=== PATIENT | female | born 1990 | race Caucasian/White ===

== ENCOUNTER → 2016-10-22 | Outpatient (CLI) | payer OTHER ==
[~2016-10-22] MED LIST: ACET-749 PO; CITA10TA8 PO; CYAN100T PO; HYDR-3419 PO; MULT-506 PO; NITR1CAP33 PO; OPTIRAY 320 IV PRN; [UNRECOGNIZED DRUG - OTHER] PO
--- NOTE | 2016-10-22 14:59 | DIAGNOSTIC IMAGING REPORT ---
ABDOMEN AND PELVIS CT WITH IV CONTRAST CT DOSE: 1724.56 mGycm HISTORY: Hematuria N28.1 Acquired renal cystN28.89 Renal mass, [id number] Gross hem TECHNIQUE: Multiaxial CT images of the abdomen and pelvis were performed following the use of intravenous contrast. COMPARISON STUDY: ERUM Cramer dated 10/19/2016 FINDINGS: Lung bases are considered clear. The kidneys demonstrate several nonobstructing renal calcifications bilaterally. There is a partially obstructing calculus within the juncture of the report ureteral pelvic region. This measures 5 mm. Additional calcifications bilaterally measuring up to the largest at 8 mm is noted at the lower pole right kidney. The enhanced component of the study demonstrates uniform enhancement of the left kidney. Right kidney also demonstrates uniform enhancement.] Upper pole is a 2.5 cm slightly hyperdense cyst. Hounsfield unit measurements are consistent with a from 8-18. Low density multifocal areas are seen to opacify at a later time frame consistent with a distended pelvicalyceal system and mild secondary hydronephrosis. The enhanced study 3 days following the initial unenhanced component of the study shows an 8 mm calcification within the renal pelvis with 5 mm calcification lower pole. All additional calcifications are stable and show no evidence for obstruction. Ureters normal in course and caliber. Bladder opacifies appropriately. There are no filling defects. Intrauterine device is present within the central and superior fundal region. The T-shaped component is within the endometrial canal with the lower segment at the anterior margin of the uterus. This is considered an abnormal orientation. There is no significant adenopathy within the abdominal pelvic or inguinal regions. IMPRESSION: 1. 8 mm partially obstructing calculus right ureteropelvic junction.. 2. Multiple additional nonobstructing renal calcifications bilaterally.. 3. Slightly hyperdense simple cyst superior pole right kidney. This measures 2.5 cm. 4. Mild/moderate right renal hydronephrosis. 5. Remainder the upper abdomen is unremarkable. 6. Intrauterine device at the level of the uterine fundus. T shaped component appears to be oriented appropriately with the lower aspect of the uterine device potentially within the anterior myometrium 7. Study is otherwise negative. Electronically signed by: Miki Isbell M.D. 10/22/2016 2:57 PM Dictated Date/Time: 10/22/2016 2:49 PM
--- NOTE | 2016-10-22 15:04 | DIAGNOSTIC IMAGING REPORT ---
CHEST 2 VIEWS ROUTINE CLINICAL HISTORY: N20.0 [id number] nephrocalcinosis. COMPARISON STUDY: No previous studies for comparison. FINDINGS: The bones soft tissues and hemidiaphragms are normal. The cardiomediastinal silhouette is normal. The lungs are clear. The pulmonary vasculature is normal. IMPRESSION: Negative chest. Electronically signed by: Miki Isbell M.D. 10/22/2016 3:02 PM Dictated Date/Time: 10/22/2016 3:02 PM
--- NOTE | 2016-10-22 15:10 | DIAGNOSTIC IMAGING REPORT ---
KUB CLINICAL HISTORY: Renal mass. Hematuria. Kidney stones. COMPARISON STUDY: CT scan dated 10/22/2016 FINDINGS: There is an indwelling IUD present. There is no pathologic bowel dilatation. There is mild right-sided hydronephrosis. There is mild clubbing of the calyces in the right. The patient's known right UPJ calculus is obscured by the contrast. IMPRESSION: Mild right-sided hydronephrosis. Electronically signed by: Dave Rolle M.D. 10/22/2016 3:09 PM Dictated Date/Time: 10/22/2016 3:06 PM
== END | disposition home or self-care (01) ==
LOC: C.CTS 11:52
PROVIDERS: ATTEND Urology
DX: N28.1 Cyst of kidney, acquired (principal); N20.0 Calculus of kidney; R31.0 Gross hematuria; N28.89 Other specified disorders of kidney and ureter; N13.30 Unspecified hydronephrosis

== ENCOUNTER → 2016-11-01 | Day surgery (SDC) | payer OTHER ==
[2016-10-22 15:49] VITALS: Ht 170.2 cm; Wt 95.5 kg
[~2016-11-01] VITALS: Ht 170.2 cm; Wt 95.5 kg
[~2016-11-01] MED LIST changes: +ATROPINE SULFATE 0.1 MG/ML 5ML SYR IV PRN; +CIPROFLOXACIN 400MG / D5W IV SCH; +DEXAMETHASONE SOD INJ 4 MG/ML VIAL ONE; +DOCU-94 PO; +DTR5 PO; +ERGO500037 PO; +EpHEDrine SULFATE INJ 50 MG/ML AMP IV PRN; +FENTANYL CITRATE INJ 50 MCG/1 ML 2 ML VIAL IV PRN; +FENTANYL CITRATE INJ 50 MCG/1 ML 2 ML VIAL ONE; +FLUMAZENIL 0.1 MG/1 ML 10 ML VIAL IV PRN; +HYDROmorphone INJ 2 MG/ML SYR/VIAL IV PRN; +LABETALOL HCL IV 5 MG/ML 20ML IV PRN; +LACTATED RINGER'S 1000ML 1,000 ML IV SCH; +LIDOCAINE HCL 2% 2 ML VIAL (20MG/ML) ONE; +MELATAB2 PO; +MEPERIDINE HCL 25 MG/ML CARP IV PRN; +MIDAZOLAM HCL 1 MG/ML 2ML VIAL ONE; +NALOXONE HCL 0.4 MG/1 ML VIAL/CARP IV PRN; +ONDANSETRON INJ 2 MG/ML 2 ML VIAL IV PRN; +ONDANSETRON INJ 2 MG/ML 2 ML VIAL ONE; -OPTIRAY 320 IV PRN; +OXYC1TAB3 PO; +PHEN-1043 PO; +PHENYLEPHRINE 100MCG/ML 5ML SYR IV PRN; +PROMETHAZINE HCL INJ 12.5 MG in SODIUM CHLORIDE 0.9% 50ML 50 ML IV ONE; +PROMETHAZINE HCL INJ 25 MG/ML 1 ML VIAL ONE; +PROPOFOL IV EMULSION 10 MG/ML 20 ML VIAL IV ONE; +SULF800T23 PO; +TAMS0.4C38 PO
--- NOTE | 2016-11-01 08:35 | History & Physical Bridge - SC ---
H&P Re-Evaluation Bridge Note: I have examined the patient, reviewed the History & Physical and in the interval since the performance of the History & Physical I have noted the following changes of clinical significance: No changes noted
--- NOTE | 2016-11-01 09:30 | Discharge Instructions-SurgCtr ---
Discharge Instructions Date of Service Nov 01, 2016. Visit Reason for Visit: Stones Discharge Discharge Diagnosis / Problem: r renal stone Discharge Goals Goal(s): Increase independence Activity Recommendations Activity Limitations: resume your previous activity Anesthesia . Post Anesthesia Instructions: If you have had General Anesthesia or IV Sedation: * Do not drive today. * Resume driving when surgeon permits. * Do not make important decisions or sign legal documents today. * Call surgeon for: 1. Temperature elevations greater than 101 degrees F. 2. Uncontrollable pain. 3. Excessive bleeding. 4. Persistent nausea and vomiting. 5. Medication intolerance (nausea, vomiting or rash). * For nausea and vomiting use only clear liquids such as: tea, soda, bouillon until nausea subsides, then gradually increase diet as tolerated. * If you have any concerns or questions, call your surgeon's office. If physician is unavailable and it is an emergency, call 911 or go to the nearest emergency room. . Diet Recommendations Home Diet: resume previous diet Procedures Procedures Performed: Right Extracorporeal Shock Wave Lithotripsy - Renal Pending Studies Studies pending at discharge: no Medical Emergencies . Who to Call and When: Medical Emergencies: If at any time you feel your situation is an emergency, please call 911 immediately. . Non-Emergent Contact Non-Emergency issues call your: Urologist . . "Provider Documentation" section prepared by Timoteo Toro.
--- NOTE | 2016-11-01 10:16 | Anesthesia Progress Nt - [facility] ---
Anesthesia Post Op Note Date & Time Nov 01, 2016 at 10:16 Vital Signs Pain Intensity: 3 Vital Signs Past 12 Hours Date Time Temp Pulse Resp B/P Pulse Ox O2 Delivery O2 Flow Rate FiO2 11/01/16 10:08 36.6 11/01/16 10:07 60 14 97 11/01/16 10:07 62 14 11/01/16 10:05 121/72 11/01/16 10:02 57 12 11/01/16 10:02 56 12 97 11/01/16 10:00 107/71 11/01/16 09:57 57 12 11/01/16 09:57 60 12 95 11/01/16 09:55 106/63 11/01/16 09:52 55 13 11/01/16 09:52 61 13 98 11/01/16 09:50 114/65 11/01/16 09:47 68 18 11/01/16 09:47 68 18 99 11/01/16 09:45 104/71 11/01/16 09:42 62 12 11/01/16 09:42 62 12 99 11/01/16 09:40 105/72 11/01/16 09:37 57 17 100 11/01/16 09:37 57 17 11/01/16 09:35 100/62 11/01/16 09:32 65 21 11/01/16 09:32 65 21 100 11/01/16 09:30 104/77 11/01/16 09:26 36.2 69 16 104/72 97 Diffusion Mask 5 11/01/16 07:12 36.8 69 16 119/82 98 Room Air Notes Mental Status: alert / awake / arousable, participated in evaluation Pt Amnestic to Procedure: Yes Nausea / Vomiting: adequately controlled, improving with treatment Pain: adequately controlled Airway Patency, RR, SpO2: stable & adequate BP & HR: stable & adequate Hydration State: stable & adequate Anesthetic Complications: no major complications apparent
[2016-11-01 10:18] VITALS: TEMP 36.2
[2016-11-01 10:47] VITALS: BP 122/85; PULSE 52; O2SAT 97
--- NOTE | 2016-11-01 12:07 | OPERATIVE REPORT ---
DATE OF OPERATION: 11/01/2016 PROCEDURE PERFORMED: Right renal ESWL. INDICATIONS: The patient is a 26-year-old female who has had multiple stones including one currently that is causing her intermittent pain at the right UPJ. She presents for definitive treatment. DESCRIPTION OF THE PROCEDURE: She was taken to the operating room. She was given antibiotics. She was placed in supine position with Venodyne stockings. General anesthesia was administered. The stone was visualized in 2 views and she received 2500 shocks, the majority at level 5. At the end of the procedure, she was transferred to the recovery room in stable condition. I attest to the content of the Intraoperative Record and any orders documented therein. Any exceptio ns are noted below.
== END | disposition home or self-care (01) ==
LOC: X.SURG 06:52
PROVIDERS: ATTEND Urology
DX: N20.0 Calculus of kidney (principal); N28.1 Cyst of kidney, acquired; E11.9 Type 2 diabetes mellitus without complications; Z83.3 Family history of diabetes mellitus; Z82.49 Family history of ischemic heart disease and other diseases of the circulatory system

== ENCOUNTER → 2016-11-01 | Outpatient (CLI) | payer OTHER ==
[~2016-11-01] MED LIST changes: -ATROPINE SULFATE 0.1 MG/ML 5ML SYR IV PRN; -CIPROFLOXACIN 400MG / D5W IV SCH; -DEXAMETHASONE SOD INJ 4 MG/ML VIAL ONE; -EpHEDrine SULFATE INJ 50 MG/ML AMP IV PRN; -FENTANYL CITRATE INJ 50 MCG/1 ML 2 ML VIAL IV PRN; -FENTANYL CITRATE INJ 50 MCG/1 ML 2 ML VIAL ONE; -FLUMAZENIL 0.1 MG/1 ML 10 ML VIAL IV PRN; -HYDROmorphone INJ 2 MG/ML SYR/VIAL IV PRN; -LABETALOL HCL IV 5 MG/ML 20ML IV PRN; -LACTATED RINGER'S 1000ML 1,000 ML IV SCH; -LIDOCAINE HCL 2% 2 ML VIAL (20MG/ML) ONE; -MEPERIDINE HCL 25 MG/ML CARP IV PRN; -MIDAZOLAM HCL 1 MG/ML 2ML VIAL ONE; -NALOXONE HCL 0.4 MG/1 ML VIAL/CARP IV PRN; -ONDANSETRON INJ 2 MG/ML 2 ML VIAL IV PRN; -ONDANSETRON INJ 2 MG/ML 2 ML VIAL ONE; -PHENYLEPHRINE 100MCG/ML 5ML SYR IV PRN; -PROMETHAZINE HCL INJ 12.5 MG in SODIUM CHLORIDE 0.9% 50ML 50 ML IV ONE; -PROMETHAZINE HCL INJ 25 MG/ML 1 ML VIAL ONE; -PROPOFOL IV EMULSION 10 MG/ML 20 ML VIAL IV ONE
--- NOTE | 2016-11-01 08:26 | DIAGNOSTIC IMAGING REPORT ---
KUB CLINICAL HISTORY: Nephrolithiasis. FINDINGS: 2 AP supine abdominal radiographs are compared to KUB and abdominal CT dated 10/22/2016. There is a nonobstructed abdominal bowel gas pattern noting moderate colonic fecal retention. This partially obscures the renal shadows. An 11 mm calculus projects over the right renal pelvis. An additional 5 mm nonobstructing calculus projects over the lower pole of the right kidney. At least one small calculus is seen projecting over the left kidney. Small phleboliths and an intrauterine device are noted in the pelvis. The bony structures appear intact. IMPRESSION: 1. There is an 11 mm calculus again seen projecting over the right renal pelvis. 2. Additional nonobstructing bilateral calculi as above. 3. Moderate colonic fecal retention. Electronically signed by: Wes Vieira M.D. 11/01/2016 8:25 AM Dictated Date/Time: 11/01/2016 8:22 AM
== END | disposition home or self-care (01) ==
LOC: C.RAD 06:23
PROVIDERS: ATTEND Urology
DX: N20.0 Calculus of kidney (principal); K59.00 Constipation, unspecified

== ENCOUNTER → 2016-11-12 | Outpatient (CLI) | payer OTHER | END | disposition home or self-care (01) | LOC: C.LABSPEC 17:24 | PROVIDERS: ATTEND Urology | DX: N20.0 Calculus of kidney (principal) ==

== ENCOUNTER → 2016-11-25 | Outpatient (CLI) | payer OTHER ==
[~2016-11-25] MED LIST changes: -NITR1CAP33 PO
--- NOTE | 2016-11-25 10:17 | DIAGNOSTIC IMAGING REPORT ---
KUB CLINICAL HISTORY: Right kidney stone. Renal cyst. COMPARISON STUDY: CT of the abdomen and pelvis October 22, 2016 and KUB November 01, 2016. FINDINGS: An intrauterine device projects over the pelvis. A 6 mm calculus within lower pole of the right kidney is noted. The right renal pelvis calculus shown on exam of November 01, 2016 is not visualized. There are left renal calculi which measure up to 4 mm. No ureteral calculi or fragments are identified. IMPRESSION: Bilateral nephrolithiasis, as described above. Interval decrease in calculus burden since prior exam. No ureteral calculi/fragments identified. Electronically signed by: Isaak Curry M.D. 11/25/2016 10:14 AM Dictated Date/Time: 11/25/2016 10:11 AM
[2016-11-25 13:09] LABS: BASO % 0.3 %; BASO ABS # 0.02 K/uL (0-0.2); COMPLETE YES; EOS % 1.3 %; HEMATOCRIT 41.5 % (37-47); IG% 0.1 %; LYMPH % 22.6 %; MEAN CELL VOLUME 90.6 fL (80-100); MEAN CORPUSCULAR HEMOGLOBIN 30.8 pg (25-34); MONO % 8.7 %; PLATELET COUNT 258 K/uL (130-400); RED BLOOD COUNT 4.58 M/uL (4.2-5.4); WHITE BLOOD COUNT 7.09 K/uL (4.8-10.8)
[2016-11-25 14:00] LABS: BLOOD UREA NITROGEN 13 mg/dl (7-18); BUN/CREATININE RATIO 19.7 (10-20); CARBON DIOXIDE 33 mmol/L (21-32); CHLORIDE 103 mmol/L (98-107); CREATININE 0.66 mg/dl (0.60-1.20); GLUCOSE 89 mg/dl (70-99); POTASSIUM 3.9 mmol/L (3.5-5.1); SODIUM 142 mmol/L (136-145)
[2016-11-25 14:05] LABS: CALCIUM 9.7 mg/dl (8.5-10.1)
== END | disposition home or self-care (01) ==
LOC: C.RAD 09:27
PROVIDERS: ATTEND Urology
DX: N28.1 Cyst of kidney, acquired (principal); N20.0 Calculus of kidney

== ENCOUNTER → 2016-12-06 | Day surgery (SDC) | payer OTHER ==
[2016-11-26 08:56] VITALS: Ht 170.2 cm; Wt 95.5 kg
[~2016-12-06] VITALS: Ht 170.2 cm; Wt 95.5 kg
[~2016-12-06] MED LIST changes: +ACETAMINOPHEN 325 MG TAB PO PRN; +ATROPINE SULFATE 0.1 MG/ML 5ML SYR IV PRN; +CIPROFLOXACIN 400MG / D5W IV SCH; +DEXAMETHASONE SOD INJ 4 MG/ML VIAL ONE; -DOCU-94 PO; -DTR5 PO; -ERGO500037 PO; +EpHEDrine SULFATE INJ 50 MG/ML AMP IV PRN; +FENTANYL CITRATE INJ 50 MCG/1 ML 2 ML VIAL IV PRN; +FENTANYL CITRATE INJ 50 MCG/1 ML 2 ML VIAL ONE; +HYDROCODONE/ACETAMOPHEN 5/325MG TAB ONE; +HYDROCODONE/ACETAMOPHEN 5/325MG TAB PO PRN; +LACTATED RINGER'S 1000ML 1,000 ML IV SCH; +LIDOCAINE HCL 2% 2 ML VIAL (20MG/ML) ONE; -MELATAB2 PO; +MIDAZOLAM HCL 1 MG/ML 2ML VIAL ONE; +ONDANSETRON INJ 2 MG/ML 2 ML VIAL ONE; -OXYC1TAB3 PO; -PHEN-1043 PO; +PROPOFOL IV EMULSION 10 MG/ML 20 ML VIAL IV ONE; +SODIUM CHLORIDE 0.9% 1000ML 1,000 ML IV SCH; -SULF800T23 PO; -TAMS0.4C38 PO
--- NOTE | 2016-12-06 08:31 | Discharge Instructions-SurgCtr ---
Discharge Instructions Date of Service December 06, 2016. Visit Reason for Visit: Stones Discharge Discharge Diagnosis / Problem: treat kidney stones Discharge Goals Goal(s): Decrease discomfort, Improve function, Increase independence, Improve disease control, Prevent Disease Progression Activity Recommendations Activity Limitations: resume your previous activity Lifting Limitations: none Exercise/Sports Limitations: none May Resume Sexual Activity: when tolerated Shower/Bathe: no limitations Driving or Machine Use: resume 1 day after discharge Anesthesia . Post Anesthesia Instructions: If you have had General Anesthesia or IV Sedation: * Do not drive today. * Resume driving when surgeon permits. * Do not make important decisions or sign legal documents today. * Call surgeon for: 1. Temperature elevations greater than 101 degrees F. 2. Uncontrollable pain. 3. Excessive bleeding. 4. Persistent nausea and vomiting. 5. Medication intolerance (nausea, vomiting or rash). * For nausea and vomiting use only clear liquids such as: tea, soda, bouillon until nausea subsides, then gradually increase diet as tolerated. * If you have any concerns or questions, call your surgeon's office. If physician is unavailable and it is an emergency, call 911 or go to the nearest emergency room. . Instructions / Follow-Up Instructions / Follow-Up Please keep your previously scheduled follow up appointment Diet Recommendations Home Diet: no limitations Procedures Procedures Performed: Right Extracorporeal Shock Wave Lithotripsy, Repeat Pending Studies Studies pending at discharge: no Medical Emergencies . Who to Call and When: Medical Emergencies: If at any time you feel your situation is an emergency, please call 911 immediately. . Non-Emergent Contact Non-Emergency issues call your: Urologist Call Non-Emergent contact if: you have a fever, temperature is above 101.5, your pain is not controlled, your pain is worsening . . "Provider Documentation" section prepared by Pedro Schofield. . [place] Drug Monitoring Program Search Results: patient reviewed within database, no issues identified
--- NOTE | 2016-12-06 08:37 | [facility] Post Operative Brief Note ---
Immediate Operative Summary Operative Date December 06, 2016. Pre-Operative Diagnosis Right Renal Stone Post-Operative Diagnosis same Procedure(s) Performed Right Extracorporeal Shock Wave Lithotripsy, Repeat Surgeon Dr Quintero Research Physician Surgeon(s) none Estimated Blood Loss 0 Findings R renal stone Specimens none Drains none Anesthesia gen Complication(s) None Disposition Recovery Room / PACU (stable)
--- NOTE | 2016-12-06 09:16 | Anesthesia Progress Nt - [facility] ---
Anesthesia Post Op Note Date & Time December 06, 2016 at 09:16 Vital Signs Pain Intensity: 0 Vital Signs Past 12 Hours Date Time Temp Pulse Resp B/P Pulse Ox O2 Delivery O2 Flow Rate FiO2 12/06/16 09:11 57 13 12/06/16 09:11 57 13 12/06/16 09:11 58 13 95 12/06/16 09:11 58 13 95 12/06/16 09:10 119/73 12/06/16 09:10 119/73 12/06/16 09:06 62 18 12/06/16 09:06 62 18 12/06/16 09:06 57 18 97 12/06/16 09:06 57 18 97 12/06/16 09:05 113/76 12/06/16 09:04 36.8 97 Room Air 12/06/16 09:01 54 14 12/06/16 09:01 53 14 96 12/06/16 09:00 126/68 12/06/16 08:56 52 17 100 12/06/16 08:56 53 17 12/06/16 08:55 120/68 12/06/16 08:51 54 16 100 12/06/16 08:51 54 16 12/06/16 08:50 117/63 12/06/16 08:46 56 13 100 12/06/16 08:46 55 13 12/06/16 08:45 126/73 12/06/16 08:41 58 20 12/06/16 08:41 36.3 64 16 126/69 100 Mask 6 12/06/16 08:41 55 20 99 12/06/16 06:32 36.5 62 16 112/71 98 Room Air Notes Mental Status: alert / awake / arousable, participated in evaluation Pt Amnestic to Procedure: Yes Nausea / Vomiting: adequately controlled Pain: adequately controlled Airway Patency, RR, SpO2: stable & adequate BP & HR: stable & adequate Hydration State: stable & adequate Anesthetic Complications: no major complications apparent
[2016-12-06 09:25] VITALS: TEMP 36.5
[2016-12-06 09:52] VITALS: BP 109/70; PULSE 67; O2SAT 100
--- NOTE | 2016-12-06 09:54 | OPERATIVE REPORT ---
DATE OF OPERATION: 12/06/2016 PREOPERATIVE DIAGNOSIS: Right renal calculus. POSTOPERATIVE DIAGNOSIS: Right renal calculus. PROCEDURE PERFORMED: Right extracorporeal shockwave lithotripsy. SURGEON: Dr. Kevin Quintero. ANESTHESIA: General. ESTIMATED BLOOD LOSS: 0. URINE OUTPUT: Not recorded. SPECIMENS: None. DRAINS: None. COMPLICATIONS: None. DESCRIPTION OF THE PROCEDURE: Mavis Gordillo was identified in the preoperative holding area. Appropriate informed consents were reviewed and completed and the patient was transported to the operating suite. Upon arrival, she received appropriate preoperative antibiotics in the form of ciprofloxacin and general anesthesia. After being placed in supine position, the stone was localized under fluoroscopy and lithotripsy commenced with a total of 2500 shocks delivered to the stone. Further details can be found on the [place] Management Information Sheet. At the conclusion of the case, she was extubated and taken to the PACU in stable condition. I attest to the content of the Intraoperative Record and any orders documented therein. Any exceptio ns are noted below.
== END | disposition home or self-care (01) ==
LOC: X.SURG 14:20
PROVIDERS: ATTEND Urology
DX: N20.0 Calculus of kidney (principal); N28.89 Other specified disorders of kidney and ureter; N28.1 Cyst of kidney, acquired; Z83.3 Family history of diabetes mellitus; Z82.49 Family history of ischemic heart disease and other diseases of the circulatory system; Z79.899 Other long term (current) drug therapy

== ENCOUNTER → 2016-12-20 | Outpatient (CLI) | payer OTHER ==
[~2016-12-20] MED LIST changes: -ACETAMINOPHEN 325 MG TAB PO PRN; -ATROPINE SULFATE 0.1 MG/ML 5ML SYR IV PRN; -CIPROFLOXACIN 400MG / D5W IV SCH; -DEXAMETHASONE SOD INJ 4 MG/ML VIAL ONE; +DOCU-94 PO; +DTR5 PO; +ERGO500037 PO; -EpHEDrine SULFATE INJ 50 MG/ML AMP IV PRN; -FENTANYL CITRATE INJ 50 MCG/1 ML 2 ML VIAL IV PRN; -FENTANYL CITRATE INJ 50 MCG/1 ML 2 ML VIAL ONE; -HYDR-3419 PO; -HYDROCODONE/ACETAMOPHEN 5/325MG TAB ONE; -HYDROCODONE/ACETAMOPHEN 5/325MG TAB PO PRN; -LACTATED RINGER'S 1000ML 1,000 ML IV SCH; -LIDOCAINE HCL 2% 2 ML VIAL (20MG/ML) ONE; +MELATAB2 PO; -MIDAZOLAM HCL 1 MG/ML 2ML VIAL ONE; -MULT-506 PO; -ONDANSETRON INJ 2 MG/ML 2 ML VIAL ONE; +OXYC1TAB3 PO; +PHEN-1043 PO; -PROPOFOL IV EMULSION 10 MG/ML 20 ML VIAL IV ONE; -SODIUM CHLORIDE 0.9% 1000ML 1,000 ML IV SCH; +SULF800T23 PO; +TAMS0.4C38 PO
--- NOTE | 2016-12-20 12:28 | DIAGNOSTIC IMAGING REPORT ---
KUB CLINICAL HISTORY: Nephrolithiasis. FINDINGS: 2 AP supine abdominal radiographs are compared to study dated 12/05/2016 and correlated with abdominal CT dated 10/22/2016. There is a nonobstructed abdominal bowel gas pattern noting moderate colonic fecal retention. There is no radiographic evidence of nephrolithiasis on today's examination. Small phleboliths and an intrauterine device are noted in the pelvis. The bony structures appear intact. IMPRESSION: There is no radiographic evidence of nephrolithiasis on today's examination. Electronically signed by: Wes Vieira M.D. 12/20/2016 12:26 PM Dictated Date/Time: 12/20/2016 12:25 PM
== END | disposition home or self-care (01) ==
LOC: C.RAD 12:05
PROVIDERS: ATTEND Nurse Practitioner Adult Health
DX: N20.0 Calculus of kidney (principal)

== ENCOUNTER → 2017-03-25 | Outpatient (CLI) | payer OTHER ==
[~2017-03-25] MED LIST changes: -DOCU-94 PO; -DTR5 PO; -ERGO500037 PO; +GADAVIST IV PRN; -MELATAB2 PO; -OXYC1TAB3 PO; -PHEN-1043 PO; -SULF800T23 PO; -TAMS0.4C38 PO
--- NOTE | 2017-03-25 10:44 | DIAGNOSTIC IMAGING REPORT ---
ABDOMEN COMBO CLINICAL HISTORY: 26 years-old Female presenting with R RENAL MASS, abdominal pain, renal stones. TECHNIQUE: Multisequence, multiplanar MR imaging of the abdomen was performed before and after the administration of intravenous contrast. IV contrast: 9.5 mL of Gadavist. COMPARISON: Correlation made to CT from 10/22/2016. FINDINGS: Localizer images: Unremarkable. Lung bases: Lung bases clear. No pericardial or pleural effusion. Liver: Normal morphology. Hepatic fat fraction measures 12% indicating mild steatosis. No liver lesion. Patent hepatic vasculature. Conventional hepatic arterial anatomy. Biliary: No intrahepatic or extrahepatic biliary ductal dilatation. Normal gallbladder. Pancreas: Normal. Spleen: Top normal in size measuring nearly 13 cm in maximal sagittal dimension. Adrenal glands: Normal. Kidneys and ureters: T2 hyperintense right upper pole 2.8 cm lesion is unchanged in size since the prior exam. This lesion is simple appearing and nonenhancing. Interval resolution of right hydronephrosis. Renal calculi are better demonstrated on prior CT. No filling defect within the collecting systems. Single main renal arteries bilaterally. 2 right renal veins. Single left main renal vein. Gastrointestinal tract: Normal. No bowel obstruction. Peritoneal cavity: No free fluid or intraperitoneal gas. Vasculature: Aorta and IVC patent and normal in caliber. Lymph nodes: No enlarged lymph nodes in the abdomen or pelvis. Abdominal wall: Normal. Musculoskeletal: Normal. IMPRESSION: 1. The right renal lesion in question is consistent with a simple cyst. No suspicious renal mass. 2. Interval resolution of right hydronephrosis. 3. Mild steatosis. Electronically signed by: Austin Vivar M.D. 03/25/2017 10:42 AM Dictated Date/Time: 03/25/2017 10:32 AM
== END | disposition home or self-care (01) ==
LOC: C.MRI 09:22
PROVIDERS: ATTEND Urology
DX: N28.89 Other specified disorders of kidney and ureter (principal)

== ENCOUNTER 2017-11-17 15:39 | Emergency (ER) | payer OTHER ==
[~2017-11-17] VITALS: Ht 170.2 cm; Wt 108.0 kg
[~2017-11-17 15:39] MED LIST changes: -ACET-749 PO; +DOCU-94 PO; +DTR5 PO; +ERGO500037 PO; -GADAVIST IV PRN; +MELATAB2 PO; +OXYC1TAB3 PO; +PHEN-1043 PO; +TAMS0.4C38 PO; -[UNRECOGNIZED DRUG - OTHER] PO
[2017-11-17 15:53] VITALS: TEMP 36.7; Ht 170.2 cm; Wt 108.0 kg
[2017-11-17] MEDS ORDERED: ALBUT/IPRATROP 3MG/0.5MG NEB 3 ML VIAL INH ONE (16:30)
[2017-11-17] MEDS ORDERED: BENZ100C84 PO (16:30)
[2017-11-17] MEDS ORDERED: SNG10 PO (16:31)
[2017-11-17] MEDS ORDERED: TOPI100T20 PO (16:32)
[2017-11-17] MEDS ORDERED: SUCRALFATE 1 GM TAB PO STA (16:32)
[2017-11-17] MEDS ORDERED: GI COCKTAIL PO STA (16:32)
[2017-11-17] MEDS ORDERED: PRLSR20 PO (16:33)
--- NOTE | 2017-11-17 16:35 | EMERGENCY ROOM VISIT NOTE ---
History Report prepared by Meenakshi: Phoenix Bianchi Under the Supervision of: Dr. Matt Joseph M.D. First contact with patient: 16:22 Chief Complaint: COUGH Stated Complaint: COUGH,SWOLLEN THROAT, THROUBLE, CATCHING BREATH Nursing Triage Summary: cough since august. cough is nonproductive. patient states she has been seen at [facility] multiple times for this cough. History of Present Illness The patient is a 27 year old female who presents to the Emergency Room with complaints of a severe and persistent cough that began in August 3 months ago. She states that she sometimes coughs so violently that she will vomit and/or lose control of her bladder. The patient has been seen for this cough by multiple providers and has received multiple diagnosis. She was first diagnosed with Pleurisy and Bronchioasthma. She was given a two week inhaler and placed on an antibiotic That did not relieve her symptoms. She is currently taking Montelukast. The patient is having chest pain currently, which is worsened by her cough. She is on control. Source of History: patient Onset: 3 months ago Position: chest Quality: other (Cough) Timing: other (Persistent) Modifying Factors (Worsening): other (Coughing worsens chest pain) Associated Symptoms: + vomiting, + urinary symptoms Review of Systems See HPI for pertinent positives & negatives. A total of 10 systems reviewed and were otherwise negative. Past Medical & Surgical Medical Problems: (1) Kidney stones (2) Renal calculi Family History Diabetes mellitus Hypertension Kidney disease Kidney stones Social History Smoking Status: Never Smoker Housing Status: lives with family Occupation Status: employed Current/Historical Medications Scheduled Doxycycline (Monohydrate) (Doxycycline), 100 MG PO BID Montelukast Sod (Montelukast Sodium), 10 MG PO DAILY Omeprazole (Prilosec), 20 MG PO DAILY Topiramate (Topamax), 100 MG PO BID Scheduled PRN Benzonatate (Tessalon Perles), 100 MG PO TID PRN for Cough Exnytsfnhu-Vtnkugepgsynn-Rvtkm (Esgic 325/50/40MG), 1 CAP PO Q4H PRN for HEADACHE PAIN Allergies Coded Allergies: No Known Allergies (Unverified , 06/08/17) Physical Exam Vital Signs Date Time Temp Pulse Resp B/P (MAP) Pulse Ox O2 Delivery O2 Flow Rate FiO2 11/17/17 18:51 118 127/57 100 11/17/17 17:43 97 18 146/68 100 Nebulizer 7.0 11/17/17 17:07 100 20 98 Room Air 11/17/17 16:49 103 11/17/17 16:42 94 Room Air 11/17/17 15:53 36.7 84 18 146/100 99 Room Air Physical Exam GENERAL: Awake, alert, well-appearing, in no acute distress HENT: Normocephalic, atraumatic. Oropharynx unremarkable. EYES: Normal conjunctiva. Sclera non-icteric. NECK: Supple. No nuchal rigidity. FROM. No JVD. RESPIRATORY: Clear to auscultation. CARDIAC: Regular rate, normal rhythm. Extremities warm and well perfused. Pulses equal. ABDOMEN: Soft, non-distended. No tenderness to palpation. No rebound or guarding. No masses. RECTAL: Deferred. MUSCULOSKELETAL: Chest examination reveals no tenderness. The back is symmetrical on inspection without obvious abnormality. There is no CVA tenderness to palpation. No joint edema. LOWER EXTREMITIES: Calves are equal size bilaterally and non-tender. No edema. No discoloration. NEURO: Normal sensorium. No sensory or motor deficits noted. SKIN: No rash or jaundice noted. Medical Decision & Procedures ER Provider Diagnostic Interpretation: Radiology results as stated below per my review and radiologist interpretation: CHEST ONE VIEW PORTABLE CLINICAL HISTORY: 27 years-old Female presenting with Pt c/o cough. TECHNIQUE: Portable upright AP view of the chest was obtained. COMPARISON: 10/22/2016. FINDINGS: Cardiomediastinal silhouette normal. No focal opacity. No large effusion or pneumothorax. Osseous structures normal. Upper abdomen normal. IMPRESSION: 1. No acute cardiopulmonary disease. Electronically signed by: Austin Vivar M.D. 11/17/2017 5:01 PM Dictated Date/Time: 11/17/2017 5:01 PM Laboratory Results 11/17/17 17:00 Red Blood Count 4.56, Mean Corpuscular Volume 87.9, Mean Corpuscular Hemoglobin 31.1, Mean Corpuscular Hemoglobin Concent 35.4, Mean Platelet Volume 11.0, Neutrophils (%) (Auto) 69.3, Lymphocytes (%) (Auto) 18.4, Monocytes (%) (Auto) 9.2, Eosinophils (%) (Auto) 2.6, Basophils (%) (Auto) 0.3, Neutrophils # (Auto) 6.08, Lymphocytes # (Auto) 1.62, Monocytes # (Auto) 0.81, Eosinophils # (Auto) 0.23, Basophils # (Auto) 0.03 11/17/17 17:00 Test 11/17/17 17:00 11/17/17 17:17 White Blood Count 8.79 K/uL (4.8-10.8) Red Blood Count 4.56 M/uL (4.2-5.4) Hemoglobin 14.2 g/dL (12.0-16.0) Hematocrit 40.1 % (37-47) Mean Corpuscular Volume 87.9 fL (80-100) Mean Corpuscular Hemoglobin 31.1 pg (25-34) Mean Corpuscular Hemoglobin Concent 35.4 g/dl (32-36) Platelet Count 224 K/uL (130-400) Mean Platelet Volume 11.0 fL (7.4-10.4) Neutrophils (%) (Auto) 69.3 % Lymphocytes (%) (Auto) 18.4 % Monocytes (%) (Auto) 9.2 % Eosinophils (%) (Auto) 2.6 % Basophils (%) (Auto) 0.3 % Neutrophils # (Auto) 6.08 K/uL (1.4-6.5) Lymphocytes # (Auto) 1.62 K/uL (1.2-3.4) Monocytes # (Auto) 0.81 K/uL (0.11-0.59) Eosinophils # (Auto) 0.23 K/uL (0-0.5) Basophils # (Auto) 0.03 K/uL (0-0.2) RDW Standard Deviation 42.0 fL (36.4-46.3) RDW Coefficient of Variation 13.1 % (11.5-14.5) Immature Granulocyte % (Auto) 0.2 % Immature Granulocyte # (Auto) 0.02 K/uL (0.00-0.02) D-Dimer 490 ug/L FEU (0-500) Anion Gap 6.0 mmol/L (3-11) Est Creatinine Clear Calc Drug Dose 147.2 ml/min Estimated GFR () 132.1 Estimated GFR (Non- 114.0 BUN/Creatinine Ratio 12.2 (10-20) Calcium Level 9.0 mg/dl (8.5-10.1) Total Bilirubin 0.3 mg/dl (0.2-1) Aspartate Amino Transf (AST/SGOT) 25 U/L (15-37) Alanine Aminotransferase (ALT/SGPT) 46 U/L (12-78) Alkaline Phosphatase 93 U/L (45-117) Total Protein 7.3 gm/dl (6.4-8.2) Albumin 3.5 gm/dl (3.4-5.0) Globulin 3.8 gm/dl (2.5-4.0) Albumin/Globulin Ratio 0.9 (0.9-2) Labs reviewed by ED physician. Medications Administered Medications (Trade) Dose Ordered Sig/Stevenson Route Start Time Stop Time Status Last Admin Dose Admin Albuterol/ Ipratropium (Duoneb) 12 ml ONE ONCE INH 11/17/17 16:30 11/17/17 16:32 DC 11/17/17 17:06 12 ML Famotidine (Pepcid Tab) 20 mg NOW ONCE PO 11/17/17 16:45 11/17/17 16:46 DC 11/17/17 16:43 20 MG Sucralfate (Carafate Tab) 1 gm NOW STAT PO 11/17/17 16:32 11/17/17 16:33 DC 11/17/17 16:43 1 GM Al Hydroxide/Mg Hydroxide (Maalox Susp) 30 ml STK-MED ONCE .ROUTE 11/17/17 16:40 11/17/17 16:41 DC 11/17/17 16:44 30 ML Lidocaine HCl (Viscous Lidocaine 2% Soln) 20 ml STK-MED ONCE .ROUTE 11/17/17 16:40 11/17/17 16:41 DC 11/17/17 16:44 20 ML Doxycycline Hyclate (Vibramycin Cap) 100 mg ONE STAT PO 11/17/17 17:36 11/17/17 17:39 DC 11/17/17 17:45 100 MG Albuterol (Ventolin Hfa Inhaler) 2 puffs NOW ONCE INH 11/17/17 18:15 11/17/17 18:16 DC 11/17/17 18:33 2 PUFFS ECG Per My Interpretation Indication: chest pain (with cough) Rate (beats per minute): 88 Rhythm: normal sinus Findings: other (No ELIAS/STD, normal axis) ED Course 162: Past medical records reviewed. The patient was evaluated in room A3. A complete history and physical examination was performed. 1630: Ordered Duoneb 12 mL INH. 163: Ordered Sucralfate 1 gm PO, GI Cocktail 24 mL PO. 164: Ordered Famotidine 20 mg PO. 1815: Upon reexamination the patient is resting in bed. I discussed results and treatment plan with the patient. She verbalizes agreement and understanding. The patient is ready for discharge. Medical Decision Differential diagnosis: Etiologies such as infections, reactive airway disease, pneumonia, pneumothorax , COPD, CHF, cardiac ischemia, pulmonary embolism, musculoskeletal, gastrointestinal, as well as others were entertained. This is a 27-year-old female who presents emergency department complaining of chronic cough that has been ongoing since August. The patient has been on numerous antibiotics as well as steroids. She does not have an elevation in her white blood cell count and her D dimer is not elevated. Her chest x-ray does not show any evidence of pneumonia. Based on these findings I feel the patient be safely discharged home. We did attempt a GI cocktail, Pepcid and Carafate as well as an hour-long breathing treatment. Repeat examination revealed improvement in patient's symptoms. I recommended a clear liquid diet for the next 48 hours along with 5 mL's of Maalox to decrease the incidence of GERD before mealtime and at bedtime. Patient was also given an albuterol inhaler and encouraged to use that twice every 6 hours. I am going to have the patient follow-up with pulmonology. Patient was in agreement with the treatment plan. Medication Reconcilliation Current Medication List: was personally reviewed by me Blood Pressure Screening Patient's blood pressure: Elevated blood pressure Blood pressure disposition: Referred to PCP Impression Primary Impression: Cough Scribe Attestation The scribe's documentation has been prepared under my direction and personally reviewed by me in its entirety. I confirm that the note above accurately reflects all work, treatment, procedures, and medical decision making performed by me. Departure Information Dispostion Home / Self-Care Prescriptions Doxycycline (Monohydrate) (Doxycycline) 100 Mg Cap 100 MG PO BID for 10 Days, #20 CAP Prov: Matt Joseph MD 11/17/17 Referrals Cuco Snowden DO (PCP) Forms HOME CARE DOCUMENTATION FORM, IMPORTANT VISIT INFORMATION Patient Instructions My [facility] Additional Instructions Use inhaler twice every 6 hours Take 5 ml Maalox before every meal and at bedtime Clear liquid diet next 48 hours Take 1 tsp Honey every 6 hours Follow up with Dr Hannah's office You have been examined and treated today on an emergency basis only. This is not a substitute for, or an effort to provide, complete comprehensive medical care. It is impossible to recognize and treat all injuries or illnesses in a single emergency department visit. It is therefore important that you follow up closely with Dr Snowden. Call as soon as possible for an appointment. Thank you for your time and consideration. I look forward to speaking with you again soon. Please don't hesitate to call us if you have any questions.
[2017-11-17] MEDS ORDERED: BUTACAP10 PO (16:36)
[2017-11-17] MEDS ORDERED: ALUMINUM/MAGNESIUM SUSP 30 ML UDC ONE (16:40)
[2017-11-17] MEDS ORDERED: LIDOCAINE HCL 2% VISC SOLN 20 ML UDC ONE (16:40)
[2017-11-17 16:42] VITALS: O2SAT 94
[2017-11-17] MEDS ORDERED: FAMOTIDINE 20 MG TAB PO ONE (16:45)
--- NOTE | 2017-11-17 17:02 | DIAGNOSTIC IMAGING REPORT ---
CHEST ONE VIEW PORTABLE CLINICAL HISTORY: 27 years-old Female presenting with Pt c/o cough. TECHNIQUE: Portable upright AP view of the chest was obtained. COMPARISON: 10/22/2016. FINDINGS: Cardiomediastinal silhouette normal. No focal opacity. No large effusion or pneumothorax. Osseous structures normal. Upper abdomen normal. IMPRESSION: 1. No acute cardiopulmonary disease. Electronically signed by: Austin Vivar M.D. 11/17/2017 5:01 PM Dictated Date/Time: 11/17/2017 5:01 PM
[2017-11-17 17:07] VITALS: PULSE 100; O2SAT 98
[2017-11-17 17:16] LABS: BASO % 0.3 %; BASO ABS # 0.03 K/uL (0-0.2); EOS % 2.6 %; EOS ABS # 0.23 K/uL (0-0.5); HEMATOCRIT 40.1 % (37-47); HEMOGLOBIN 14.2 g/dL (12.0-16.0); IG# 0.02 K/uL (0.00-0.02); LYMPH % 18.4 %; LYMPH ABS # 1.62 K/uL (1.2-3.4); MEAN CELL VOLUME 87.9 fL (80-100); MEAN CORPUSCULAR HEMOGLOBIN 31.1 pg (25-34); MEAN CORPUSCULAR HGB CONC 35.4 g/dl (32-36); MONO % 9.2 %; MONO ABS # 0.81 K/uL (0.11-0.59); NEUT % 69.3 %; NEUT ABS # 6.08 K/uL (1.4-6.5); PLATELET COUNT 224 K/uL (130-400); RED CELL DISTRIBUTION WIDTH CV 13.1 % (11.5-14.5); WHITE BLOOD COUNT 8.79 K/uL (4.8-10.8)
[2017-11-17 17:34] LABS: ALBUMIN 3.5 gm/dl (3.4-5.0); CREATININE 0.72 mg/dl (0.60-1.20); POTASSIUM 3.7 mmol/L (3.5-5.1)
[2017-11-17] MEDS ORDERED: DOXYCYCLINE HYCLATE 100 MG CAP PO STA (17:36)
[2017-11-17 17:37] LABS: TOTAL PROTEIN 7.3 gm/dl (6.4-8.2)
[2017-11-17] MEDS ORDERED: DOXY-300 PO (18:12)
[2017-11-17] MEDS ORDERED: ALBUTEROL HFA 8 GM INHALER INH ONE (18:15)
[2017-11-17 18:51] VITALS: BP 127/57; PULSE 118; O2SAT 100
== END 2017-11-17 18:52 | disposition home or self-care (01) ==
LOC: C.EDB 15:40 → C.EDA 18:52
DX: R05 Cough (principal)

== ENCOUNTER → 2018-03-17 | Outpatient (CLI) | payer OTHER ==
[~2018-03-17] MED LIST changes: +BENZ100C84 PO; +BUTACAP10 PO; -CITA10TA8 PO; -CYAN100T PO; -DOCU-94 PO; +DOXY-300 PO; -DTR5 PO; -ERGO500037 PO; -MELATAB2 PO; -OXYC1TAB3 PO; -PHEN-1043 PO; +PRLSR20 PO; +SNG10 PO; -TAMS0.4C38 PO; +TOPI100T20 PO
--- NOTE | 2018-03-17 15:15 | DIAGNOSTIC IMAGING REPORT ---
KUB HISTORY: Z00.00 Health [id number] [id number] Acquired karlo COMPARISON: KUB 06/09/2017. FINDINGS: The bowel gas pattern is unremarkable. There are no dilated loops of small bowel to suggest an obstruction. There are punctate bilateral renal calculi. No ureteral catheter identified. Calcifications in the deep pelvis are nonspecific but favor phleboliths. No pneumoperitoneum or pneumatosis. IMPRESSION: Bilateral nephrolithiasis. No ureteral calculi identified. Electronically signed by: Jem Lind M.D. 03/17/2018 3:13 PM Dictated Date/Time: 03/17/2018 3:09 PM
== END | disposition home or self-care (01) ==
LOC: C.RAD 14:38
PROVIDERS: ATTEND Urology
DX: Z00.00 Encounter for general adult medical examination without abnormal findings (principal); N20.0 Calculus of kidney; N28.1 Cyst of kidney, acquired; N28.89 Other specified disorders of kidney and ureter